=== PATIENT | male | born 1990 | race Two or more races ===

== ENCOUNTER 2018-04-26 06:27 | Emergency (ER) | payer SELFPAY ==
[~2018-04-26] VITALS: Ht 170.2 cm; Wt 54.4 kg
--- NOTE | 2018-04-26 07:06 | NUR ---
PT HOMELESS SEEKING TREATMENT FOR DETOX. PT WAITING FOR SUPERVISOR [employer]AGE GIVEN MEAL TRAY ALERT WITH ORIENTATION X4
--- NOTE | 2018-04-26 07:39 | NUR ---
PT DISCHARGED TO WAITING ROOM PENDING PERSONAL BANKING OFFICER EVALUATION. PT GIVEN ACI , HOMELESS FPC . AND DRUG DETOX MATERIALS.
[2018-04-26 07:40] VITALS: BP 123/85
== END 2018-04-26 07:40 | disposition home or self-care (01) ==
LOC: ER 06:32
DX: F19.10 Other psychoactive substance abuse, uncomplicated (principal); F17.200 Nicotine dependence, unspecified, uncomplicated; Z59.0 Homelessness
CPT/HCPCS: A4606; Z7502

== ENCOUNTER 2018-05-07 04:12 | Emergency (ER) | payer SELFPAY ==
[~2018-05-07] VITALS: Ht 167.6 cm; Wt 68.0 kg
--- NOTE | 2018-05-07 04:30 | NUR ---
CALLED FOR TRIAGE, NO ANSWER.
--- NOTE | 2018-05-07 04:54 | NUR ---
PT CALLED FOR TRIAGE, PT SLEEPING IN ER LOBBY.
--- NOTE | 2018-05-07 06:11 | NUR ---
PT PRESENTED TO THE ER WITH A C/O EPIGASTRIC ABD PAIN THAT ROLLINS. PT IS CHILEAN SPEAKING ONLY. JEAN-PAUL SYED IS AT THE BEDSIDE FOR TRANSLATION. PT IS ON THE MONITOR AND CONTINUOUS PULSE OX. PT STATED THAT HIS PAIN IS 7/10 AND HIS FEET HURT.
--- NOTE | 2018-05-07 06:14 | NUR ---
DR. ORNELAS IS AT THE BEDSIDE WITH YAHAIRA, EMT EVALUATING THE PT.
[2018-05-07] MEDS ORDERED: KETOROLAC TROMETHAMINE 15 MG/ML VIAL ONE (06:24)
[2018-05-07] MEDS ORDERED: FAMOTIDINE (20 MG) 20 MG TABLET ONE (06:25)
[2018-05-07] MEDS ORDERED: MAG HYDROX/AL HYDROX/SIMETH 30 ML UDC ONE (06:25)
[2018-05-07] MEDS ORDERED: KETOROLAC TROMETHAMINE INJ 30 MG/ML VIAL IV ONE (06:30)
[2018-05-07] MEDS ORDERED: ONDANSETRON HCL/PF 4 MG/2 ML VIAL IVP ONE (06:30)
[2018-05-07] MEDS ORDERED: FAMOTIDINE (20 MG) 20 MG TABLET PO ONE (06:30)
[2018-05-07] MEDS ORDERED: IV NS 0.9% 1,000 ML BAG IV ONE (06:30)
[2018-05-07] MEDS ORDERED: MAG HYDROX/AL HYDROX/SIMETH 30 ML UDC PO ONE (06:30)
[2018-05-07] MEDS ORDERED: ONDANSETRON HCL/PF 4 MG/2 ML VIAL ONE (06:32)
[2018-05-07 06:38] LABS: BASOPHILS # (AUTO) 0.1 /CMM (0.0-0.2); BASOPHILS % (AUTO) 0.6 % (0.0-2.0); HEMATOCRIT 46 % (39-51); HEMOGLOBIN 15.5 g/dL (13.5-17.5); LYMPHOCYTES # (AUTO) 2.7 /CMM (0.8-4.8); LYMPHOCYTES % (AUTO) 23.8 % (20.0-44.0); MEAN CORPUSCULAR HGB CONC 34 g/dl (31.0-36.0); MEAN CORPUSCULAR VOLUME 88 fL (80-96); MONOCYTES # (AUTO) 1.2 /CMM (0.1-1.30); MONOCYTES % (AUTO) 10.2 % (2.0-12.0); NEUTROPHILS # (AUTO) 7.5 /CMM (1.8-8.9); NEUTROPHILS % (AUTO) 64.4 % (43.0-81.0); PLATELET COUNT (AUTO) 252 /CMM (150-450); RED BLOOD CELL COUNT(AUTO) 5.16 MIL/uL (4.5-6.0); WHITE BLOOD COUNT (AUTO) 11.6 K/uL (4.3-11.0)
[2018-05-07 07:07] LABS: BILIRUBIN,DIRECT 0.1 mg/dL (0.0-0.2); BILIRUBIN,TOTAL 0.7 mg/dL (0.2-1.0); CALCIUM, SERUM 9.2 mg/dL (8.5-10.1); CREATININE 0.9 mg/dL (0.6-1.3); POTASSIUM 3.6 mmol/L (3.5-5.1); TOTAL PROTEIN, SERUM 7.4 g/dL (6.4-8.2)
--- NOTE | 2018-05-07 07:21 | NUR ---
REPORT GIVEN TO ELVIN ELLIS FOR BUCK.
--- NOTE | 2018-05-07 07:25 | NUR ---
received report from Faith for casi, patient sleeping and breathing evenly in no apparent distress noted.
[2018-05-07 07:37] VITALS: BP 120/80
--- NOTE | 2018-05-07 07:40 | NUR ---
Patient discharged to home in stable condition. Written and verbal after care instructions given. Patient verbalizes understanding of instruction.IV removed. Catheter intact and site benign. Pressure and 4x4 applied to site. No bleeding noted.
== END 2018-05-07 07:39 | disposition home or self-care (01) ==
LOC: ER 04:14
DX: F19.10 Other psychoactive substance abuse, uncomplicated (principal); R10.13 Epigastric pain; F10.10 Alcohol abuse, uncomplicated; F15.10 Other stimulant abuse, uncomplicated; F17.200 Nicotine dependence, unspecified, uncomplicated; Y90.9 Presence of alcohol in blood, level not specified; Z98.890 Other specified postprocedural states; Z59.0 Homelessness
CPT/HCPCS: 36415; 80048; 80076; 83690; 85025; 96374; 96375; 99283; J1885; J2405; J7030